=== PATIENT | female | born 1995 | race Caucasian/White ===

== ENCOUNTER 2016-09-04 20:19 | Emergency (ER) | payer OTHER ==
--- NOTE | 2016-09-05 07:51 | RAD ---
History: Cough. Comparison: 10/13/2013. Technique: 2 views Findings: The soft tissue and bony structures are unremarkable. The heart size is appropriate. No infiltrate, effusion or pneumothorax is observed. The hilar and mediastinal structures are normal. Impression: 1. A negative 2 view chest
== END 2016-09-04 22:25 | disposition home or self-care (01) ==
LOC: ED 20:19
DX: J40 Bronchitis, not specified as acute or chronic (principal); F12.10 Cannabis abuse, uncomplicated; E07.9 Disorder of thyroid, unspecified; M41.9 Scoliosis, unspecified